=== PATIENT | male | born 1960 | race Caucasian/White ===

== ENCOUNTER 2023-01-20 00:40 | Day surgery (SDC) | payer OTHER, SELFPAY ==
[2023-01-13 14:39] VITALS: BMI 36.3
[2023-01-20 12:10] VITALS: BP 144/86; PULSE 53; RESP 18; TEMP 36.3; O2SAT 97
--- NOTE | 2023-01-20 12:19 | PM.HPGS ---
History of Present Illness History of Present Illness Consent: Risks, benefits, and alternatives have been discussed and questions answered. Patient agrees to proceed with procedure. Chief complaint: rectal bleeding Narrative: Woodrow Salinas is a 62 year old male Presents for colonoscopy. Patient notices for many years he has had bright red blood per rectum with wiping. States he had a hemorrhoid some years ago has an anal skin tag. He denies significant abdominal pain. Patient used to be constipated but this is improved on eating more fiber and drinking more fluids. Despite this he has intermittent bleeding that occurred for week or 2 in the may be stopped for a month. He denies significant abdominal pain. Family history noncontributory. Patient did have a prior colonoscopy in 2015. Review of Systems Review of Systems: Review of systems noncontributory. [facility] Past Medical History Medical History (Updated 12/30/22 @ 15:17 by Cristopher Schmitt DO) Bradycardia CAD in [place] artery Chest pain Edema of both legs Gastro-esophageal reflux disease with esophagitis Other and unspecified hyperlipidemia Pure hypercholesterolemia Screening for endocrine, metabolic and immunity disorder SK (seborrheic keratosis) Spinal stenosis of lumbar region Ventral hernia without obstruction or gangrene Family History Family History Mother Diabetes mellitus Family history of thyroid disease Hypertension Family history of cardiac disorder Social History Social History (Updated 12/30/22 @ 14:47 by Francy Tomlinson [facility]) Smoking status: Never smoker Alcohol intake: current Drinks per week: 4 Alcohol use details: BEERS Substance use: never Substance use type: does not use Lack of Transportation: No Lack of Food: Never True Current Housing: I Have Housing Concerned About Future Housing: No Difficulty Paying Gas/Electric Bills: No Difficulty Paying for Meds: No Currently Unemployed: No Education: Master's Degree or Higher Difficulty w/ Childcare or Family Care: No Living arrangements: alone Spiritual care concerns: No Meds Home Medications and Allergies Home Medications Medication Instructions Recorded Confirmed Type quetiapine 200 mg tablet 200 mg PO DAILY #30 tabs 09/24/22 01/13/23 Rx pravastatin 80 mg tablet See Rx Instructions .Route 10/24/22 01/13/23 Rx .COMPLEX #30 tabs omeprazole 20 mg capsule,delayed 20 mg PO DAILY #90 caps 12/23/22 01/13/23 Rx release sodium,potassium,mag sulfates 17.5 See Rx Instructions PO .COMPLEX 01/07/23 Rx gram-3.13 gram-1.6 gram oral soln #354 mL (Suprep Bowel Prep Kit) Adults Multivitamin 1 tab-cap PO DAILY 01/13/23 01/13/23 History lysine 500 mg tablet 500 mg PO DAILY 01/13/23 01/13/23 History omega-3 fatty acids 2,000 mg PO BID 01/13/23 01/13/23 History Allergies Allergy/AdvReac Type Severity Reaction Status Date / Time No Known Allergies Allergy Unknown Verified 01/20/23 12:10 Vital Signs Vital Signs - 24 hr 01/20/23 12:10 Temperature 97.4 F L Pulse Rate 53 L Respiratory Rate 18 Blood Pressure 144/86 H Pulse Oximetry 97 Oxygen Delivery Room Air Exam Narrative: Physical exam reveals patient to be alert. Vital signs stable. HEENT exam is unremarkable. Patient is anicteric. Lungs are clear to auscultation and percussion. Heart is without murmur or extra sounds. Abdomen bowel sounds are present soft nontender with no organomegaly. Digital external rectal exam normal. Assessment and Plan Assessment and plan (1) Hematochezia: Code(s): K92.1 - Melena Status: Acute Assessment and Plan: Patient with ongoing rectal bleeding he states has been present for many years associated with wiping. Plan to continue stool softener such as Metamucil. If bleeding persist hemorrhoid surgery may be required. Colonoscopy w
[2023-01-20] MEDS: LACTATED RINGERS 1,000 ML 150 ML IV CONT (12:22)
--- NOTE | 2023-01-20 12:30 | WPDANESEPPF ---
Anes - Initial Pre Proc Eval Procedure: Operation Date: 01/20/23 13:30 Proposed Procedures p Colonoscopy - Jesús Bhat MD Date/Time: 01/20/23 12:30 Surgeon: Jesús Bhat MD Pre Op Diagnosis: rectal bleeding Patient Data Age: 62 Gender: M Height: 1.74 m Weight: 107.1 kg Last Vital Signs Temp 97.4 F L 01/20/23 12:10 Pulse 53 L 01/20/23 12:10 Resp 18 01/20/23 12:10 BP 144/86 H 01/20/23 12:10 Pulse Ox 97 01/20/23 12:10 O2 Del Method Room Air 01/20/23 12:10 Allergies Allergy/AdvReac Type Severity Reaction Status Date / Time No Known Allergies Allergy Unknown Verified 01/20/23 12:10 Home Medications Medication Instructions Recorded Confirmed Type quetiapine 200 mg tablet 200 mg PO DAILY #30 tabs 09/24/22 01/13/23 Rx pravastatin 80 mg tablet See Rx Instructions .Route 10/24/22 01/13/23 Rx .COMPLEX #30 tabs omeprazole 20 mg capsule,delayed 20 mg PO DAILY #90 caps 12/23/22 01/13/23 Rx release sodium,potassium,mag sulfates 17.5 See Rx Instructions PO .COMPLEX 01/07/23 Rx gram-3.13 gram-1.6 gram oral soln #354 mL (Suprep Bowel Prep Kit) Adults Multivitamin 1 tab-cap PO DAILY 01/13/23 01/13/23 History lysine 500 mg tablet 500 mg PO DAILY 01/13/23 01/13/23 History omega-3 fatty acids 2,000 mg PO BID 01/13/23 01/13/23 History Patient hx anesthesia problems: none Family hx anesthesia problems: none Results Review: All pre-operative results and documents have been reviewed as part of the pre-operative evaluation. [facility] Past Medical History Medical History (Updated 12/30/22 @ 15:17 by Cristopher Schmitt DO) Bradycardia CAD in [place] artery Chest pain Edema of both legs Gastro-esophageal reflux disease with esophagitis Other and unspecified hyperlipidemia Pure hypercholesterolemia Screening for endocrine, metabolic and immunity disorder SK (seborrheic keratosis) Spinal stenosis of lumbar region Ventral hernia without obstruction or gangrene Family History Family History Mother Diabetes mellitus Family history of thyroid disease Hypertension Family history of cardiac disorder Social History Social History (Updated 12/30/22 @ 14:47 by Francy Tomlinson CMA) Smoking status: Never smoker Alcohol intake: current Drinks per week: 4 Alcohol use details: BEERS Substance use: never Substance use type: does not use Lack of Transportation: No Lack of Food: Never True Current Housing: I Have Housing Concerned About Future Housing: No Difficulty Paying Gas/Electric Bills: No Difficulty Paying for Meds: No Currently Unemployed: No Education: Master's Degree or Higher Difficulty w/ Childcare or Family Care: No Living arrangements: alone Spiritual care concerns: No Anes - Eval Final PreProcedure Day of Procedure 01/20/23 12:30 Patient weight: obese Heart: regular rate and rhythm Lungs: clear to auscultation Airway: Mallampati scale class III Neurological: alert and oriented Last oral intake: >/= 8 hours ASA classification: III Emergent: no Anesthetic plan: proceed Anesthesia type and monitoring: general GIVS and standard monitoring Results Review: All pre-operative results and documents have been reviewed as part of the pre-operative evaluation. Informed Consent: The patient's anesthetic plan and its attendant risks and benefits were discussed with the patient/family/POA. Questions were solicited and answers provided to the satisfaction of the patient/family/POA.
[2023-01-20 14:18] VITALS: BP 150/96; PULSE 88; RESP 14; O2SAT 94
[2023-01-20 14:28] VITALS: BP 146/101; PULSE 84; RESP 14; O2SAT 94
[2023-01-20 14:38] VITALS: BP 146/92; PULSE 73; RESP 17; O2SAT 93
== END 2023-01-20 14:43 | disposition home or self-care (01) ==
PROVIDERS: PCP Internal Medicine; Visit Provider Internal Medicine Gastroenterology
PROC: 0DJD8ZZ Inspection of Lower Intestinal Tract, Via Natural or Artificial Opening Endoscopic (ICD-10-PCS; CPT 45378; principal; 2023-01-20 13:30)
DX: K62.5 Hemorrhage of anus and rectum (principal); K63.5 Polyp of colon; K64.8 Other hemorrhoids; I25.10 Atherosclerotic heart disease of native coronary artery without angina pectoris; K21.9 Gastro-esophageal reflux disease without esophagitis; E78.00 Pure hypercholesterolemia, unspecified; E66.9 Obesity, unspecified; Z68.35 Body mass index [BMI] 35.0-35.9, adult
CPT/HCPCS: 45385; 88305; J2704; J7120

== ENCOUNTER 2025-07-03 14:16 | Emergency (ER) | payer MEDICARE, SELFPAY ==
[2025-07-03 14:27] VITALS: BP 144/89; PULSE 51; RESP 16; TEMP 35.8; O2SAT 97
--- OUTSIDE RECORDS SUMMARY | 2025-07-03 14:29 | XMS_ITS | Clinical Summary ---
Author Organization [facility] Address [address] [place] [address] Care Team Providers Care Court Stenographer Name Role Phone Parth Davis MD Primary Care Provider [phone] Allergies No known active allergies Medications omeprazole (PRILOSEC) 20 MG capsule Take 1 capsule (20 mg total) by mouth daily. 10/20/2024 Active pravastatin (PRAVACHOL) 80 MG tablet Take 1 tablet (80 mg total) by mouth daily. 10/20/2024 Active QUEtiapine (SEROQUEL) 200 MG tablet Take 0.5 tablets (100 mg total) by mouth nightly at bedtime. 11/03/2024 Active icosapent ethyl (VASCEPA) 1 G capsule Take 1 capsule (1 g total) by mouth daily. 11/03/2024 Active Active Problems Problem Noted Date Diagnosed Date Chronic GERD 01/19/2025 Social History Tobacco Use Types Packs/Day Years Used Date Smoking Tobacco: Never Assessed Tobacco Cessation:Counseling Given: Yes PHQ-2 Answer Date Recorded Patient Health Questionnaire-2 Score 0 01/19/2025 Sex and Gender Information Value Date Recorded Sex Assigned at Not on file Legal Sex Male 3:10 PM CDT Gender Identity Not on file Sexual Orientation Not on file Last Filed Vital Signs Vital Sign Reading Time Taken Comments Blood Pressure 121/74 01/19/2025 11:02 AM CDT Pulse 70 01/19/2025 11:02 AM CDT Temperature 36.1 C (97 F) 01/19/2025 11:02 AM CDT Respiratory Rate 19 01/19/2025 11:02 AM CDT Oxygen Saturation 100% 01/19/2025 11:02 AM CDT Inhaled Oxygen Concentration - - Weight 105.2 kg (232 lb) 01/19/2025 11:02 AM CDT Height 172.7 cm (5' 8) 01/19/2025 11:02 AM CDT Body Mass Index 35.28 01/19/2025 11:02 AM CDT Plan of Treatment Upcoming Encounters Date Type Department Care Team (Latest Contact Info) Description 08/10/2025 12:30 PM OUTSIDE DEALER SALES REPRESENTATIVE Hospital Encounter [facility] [place] [address] Lyle Campos MD [address] [address] 08/10/2025 12:30 PM OUTSIDE DEALER SALES REPRESENTATIVE - 08/10/2025 1:00 PM OUTSIDE DEALER SALES REPRESENTATIVE Surgery [facility] [place]o[facility] [address] Lyle Campos MD [address] [address] EGD DX WITH BRUSH/WASH Scheduled Procedures Name Priority Associated Diagnoses Date/Ti me EGD DX WITH BRUSH/WASH Chronic GERD 08/10/2025 12:30 PM OUTSIDE DEALER SALES REPRESENTATIVE Health Maintenance Due Date Last Done Comments Colorectal Cancer Screening Colonoscopy (10 Years) 1960 Hepatitis C 1978 Pneumococcal Vaccine: 50+ Years (1 of 1 - PCV) 2010 COVID-19 Vaccine ( - 2024- season) 2025 06/18/2021, 09/23/2020, 09/02/2020 Influenza Adult (#1) 2025 06/27/2022, 06/18/2021, 04/19/2020, Additional history exists DTaP, Tdap and Td Vaccines (2 - Td or Tdap) 01/09/2035 01/09/2025 RSV Immunization or 60+ Years (1 - 1-dose 75+ series) 2035 Zoster Vaccines Completed 07/04/2020, 04/19/2020 PHQ-2 (Physician [place]) Completed 01/19/2025 Hepatitis A Vaccines Aged Out No long er eligible based on patient's age to complete this topic Meningococcal B Vaccine Aged Out No l onger eligible based on patient's age to complete this topic Meningococcal Vaccine Aged Out No megan thais eligible based on patient's age to complete this topic RSV Immunizations Under 20 Months Aged Out No longer eligible based on patient's age to complete this topic Goals Goal Patient Goal Type Associated Problems Recent Progress Patient-Stated? Author Autogenera ana Goal Care Plan Autogenerated Problem No Carmen Juarez S, FOOD SERVICE TRAY ATTENDANT Additional Health Concerns Active Problems Noted Date Diagnosed Date Autogenerated Problem 01/19/2025 Insurance [facility] Care Teams Court Stenographer Relationship Specialty Start Date End Date Parth Davis MD [address] [place] [address] PCP - General FAMILY PRACTICE 11/08/24
--- OUTSIDE RECORDS SUMMARY | 2025-07-03 14:29 | XMS_ITS | Encounter Summary ---
Author Organization [facility] Address [address] [place] [address] Care Team Providers Care Speedboat Driver Name Role Phone Aron Mullen MD Primary Care Provider [phone] Encounter Details Date Type Department Care Team (Late st Contact Info) Description 04/03/2005 Outpatient [facility] [address] [place] [facility] [address] Tino Cruz MD [address] [place] [address] Social History Tobacco Use Types Packs/Day Years Used Date Smoking Tobacco: Never Assessed Sex and Gender Information Value Date Recorded Sex Assigned at Not on file Legal Sex Male 5:00 AM CUSTOMER AGENT Gender Identity Not on file Sexual Orientation Not on file documented as of this encounter Plan of Treatment Not on file documented as of this encounter Visit Diagnoses Not on filedocumented in this encounter Care Teams Speedboat Driver Relationship Specialty Start Date End Date Aron Mullen MD PCP - General 01/07/05 documented as of this encounter
--- OUTSIDE RECORDS SUMMARY | 2025-07-03 14:29 | XMS_ITS | Continuity of Care Document ---
Author Name Moncho Moe ae Address [address] [place] [address] Organization Unknown Address [address] [place] [address] Medications No known medications Problems No known problems
--- OUTSIDE RECORDS SUMMARY | 2025-07-03 14:29 | XMS_ITS | Encounter Summary ---
Author Organization [facility] Address [address] [place] [address] Care Team Providers Care Batch Roller Operator Name Role Phone Aron Mullen MD Primary Care Provider [phone] Encounter Details Date Type Department Care Team (Latest Contact Info) Description 01/07/2005 Outpatient Historical [facility] [place] [address] [place] [phone] CHEST PAIN NOS (Primary Dx) Social History Tobacco Use Types Packs/Day Years Used Date Smoking Tobacco: Never Assessed Sex and Gender Information Value Date Recorded Sex Assigned at Not on file Legal Sex Male 5:00 AM INTERVENTIONAL NURSE Gender Identity Not on file Sexual Orientation Not on file documented as of this encounter Plan of Treatment Not on file documented as of this encounter Visit Diagnoses Diagnosis Chest pain, unspecified- Primary documented in this encounter Care Teams Batch Roller Operator Relationship Specialty Start Date End Date Aron Mullen MD PCP - General 01/07/05 documented as of this encounter
--- OUTSIDE RECORDS SUMMARY | 2025-07-03 14:29 | XMS_ITS | Encounter Summary ---
Author Organization [facility] Address [address] [place] [address] Care Team Providers Care Gang Knife Fish Chopper Name Role Phone Aron Mullen MD Primary Care Provider [phone] Encounter Details Date Type Department Care Team (Late st Contact Info) Description 01/13/2005 Outpatient [facility] [address] [place] 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
--- OUTSIDE RECORDS SUMMARY | 2025-07-03 14:29 | XMS_ITS | Clinical Summary ---
Author Organization [facility] Address [address] 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 TEACHER Gender Identity Not on file Sexual Orientation Not on file Plan of Treatment Health Maintenance Due Date Last Done Comments DTAP/TDAP/TD VACCINES (1 - Tdap) 1979 COLORECTAL SCREENING 2005 Colorectal Cancer Screening 2005 FIT-DNA Q 3 years 2005 FIT/FOBT Q 1 year 2005 Flex Sig/CT Colonography Q 5 years 2005 PNEUMOCOCCAL VACCINE 50+ YEARS (1 of 1 - PCV) 06/01/20 10 ZOSTER VACCINE (1 of 2) 2010 INFLUENZA VACCINE (#1) 2025 RSV VACCINE (60+ or ) (1 - 1-dose 75+ series) 2035 Care Teams Novelty Printing Machine Operator Relationship Specialty Start Date End Date Aron Mullen MD PCP - General 01/07/05
--- OUTSIDE RECORDS SUMMARY | 2025-07-03 14:29 | XMS_ITS | Encounter Summary ---
Author Organization [facility] Address [address] [place] [address] Care Team Providers Care Jute Bag Cutting Machine Operator Name Role Phone Aron Mullen MD Primary Care Provider [phone] Encounter Details Date Type Department Care Team (Late st Contact Info) Description 02/23/2005 Outpatient [facility] [address] [facility] [place] [address] Tino Cruz MD [address] [place] [address] Social History Tobacco Use Types Packs/Day Years Used Date Smoking Tobacco: Never Assessed Sex and Gender Information Value Date Recorded Sex Assigned at Not on file Legal Sex Male 5:00 AM R D INTERNSHIP Gender Identity Not on file Sexual Orientation Not on file documented as of this encounter Plan of Treatment Not on file documented as of this encounter Visit Diagnoses Not on filedocumented in this encounter Care Teams Jute Bag Cutting Machine Operator Relationship Specialty Start Date End Date Aron Mullen MD PCP - General 01/07/05 documented as of this encounter
--- OUTSIDE RECORDS SUMMARY | 2025-07-03 14:29 | XMS_ITS | Continuity of Care Document ---
Author Name Moncho Moe Address [address] [place] [address] Organization Unknown Address [address] [place] [address] Medications No known medications Problems No known problems
--- OUTSIDE RECORDS SUMMARY | 2025-07-03 14:29 | XMS_ITS | Encounter Summary ---
Author Organization [facility] Address [address] [place] [address] Care Team Providers Care Shactor Name Role Phone Aron Mullen MD Primary Care Provider [phone] Encounter Details Date Type Department Care Team (Late st Contact Info) Description 04/14/2005 Outpatient Historical [facility] Internal Medicine [facility] and [address] [place] [phone] [place] [address] [facility] [address] [place] [address] Social History Tobacco Use Types Packs/Day Years Used Date Smoking Tobacco: Never Assessed Sex and Gender Information Value Date Recorded Sex Assigned at Not on file Legal Sex Male 5:00 AM TRUCK CHAUFFEUR Gender Identity Not on file Sexual Orientation Not on file documented as of this encounter Plan of Treatment Not on file documented as of this encounter Visit Diagnoses Not on filedocumented in this encounter Care Teams Shactor Relationship Specialty Start Date End Date Aron Mullen MD PCP - General 01/07/05 documented as of this encounter
--- OUTSIDE RECORDS SUMMARY | 2025-07-03 14:29 | XMS_ITS | Encounter Summary ---
Author Organization [facility] Address [address] [place] [address] Care Team Providers Care Mdm Sr Name Role Phone Aron Mullen MD Primary Care Provider [phone] Encounter Details Date Type Department Care Team (Late st Contact Info) Description 12/30/2004 Outpatient Historical [facility] Internal Medicine [facility] and [address] [place] [address] [place] [address] [facility] [address] [place] [address] Social History Tobacco Use Types Packs/Day Years Used Date Smoking Tobacco: Never Assessed Sex and Gender Information Value Date Recorded Sex Assigned at Not on file Legal Sex Male 5:00 AM UPHOLSTERY HANDLER Gender Identity Not on file Sexual Orientation Not on file documented as of this encounter Plan of Treatment Not on file documented as of this encounter Visit Diagnoses Not on filedocumented in this encounter Care Teams Mdm Sr Relationship Specialty Start Date End Date Aron Mullen MD PCP - General 01/07/05 documented as of this encounter
--- OUTSIDE RECORDS SUMMARY | 2025-07-03 14:29 | XMS_ITS | Encounter Summary ---
Author Organization [employer] Address [address] [place] [address] Care Team Providers Care Mass Communications Instructor Name Role Phone Aron Mullen MD Primary Care Provider [phone] Encounter Details Date Type Department Care Team (Late st Contact Info) Description 01/07/[address] [facility] [address] [place] [address] [place] [address] [facility] [address] [place] [address] Social History Tobacco Use Types Packs/Day Years Used Date Smoking Tobacco: Never Assessed Sex and Gender Information Value Date Recorded Sex Assigned at Not on file Legal Sex Male 5:00 AM BEAUTICIAN APPRENTICE Gender Identity Not on file Sexual Orientation Not on file documented as of this encounter Plan of Treatment Not on file documented as of this encounter Visit Diagnoses Not on filedocumented in this encounter Care Teams Mass Communications Instructor Relationship Specialty Start Date End Date Aron Mullen MD PCP - General 01/07/05 documented as of this encounter
--- NOTE | 2025-07-03 14:42 | ED_ITS ---
HPI - Eye Problem General Chief complaint: Eye Problems Stated complaint: Bilateral Eye Problems Time Seen by Provider: 07/03/25 14:29 Source: patient and RN notes reviewed Mode of arrival: ambulatory Limitations: no limitations History of Present Illness HPI Narrative: 65-year-old male patient presents today complaining of swelling and crusting to the bilateral upper and lower eyelids as well as redness to the eyes. Initially the right eye started 5 days ago after trimming a tree outside and saw dust dropping on his face without eye protection. This same thing occurred 2 other times without eye protection with the next couple of days, in the left eye started developing symptoms 2 days ago as well. Patient denies pain 10 denies vision changes itching, or any cold symptoms. He does not wear contacts or glasses. He has flush the eyes, but tried no other [id number] interventions prior to arrival. Related Data Home Medications ?Medication ?Instructions ?Recorded ?Confirmed ?Last Taken ?Type Adults Multivitamin 1 tab-cap PO DAILY 01/13/23 06/08/25 Unknown History Allergies Allergy/AdvReac Type Severity Reaction Status Date / Time No Known Allergies Allergy Unknown Verified 07/03/25 14:18 [facility] Past Medical History Medical History Screening for endocrine, metabolic and immunity disorder Bradycardia CAD in [place] artery Chest pain Gastro-esophageal reflux disease with esophagitis Edema of both legs Other and unspecified hyperlipidemia Pure hypercholesterolemia SK (seborrheic keratosis) Spinal stenosis of lumbar region Ventral hernia without obstruction or gangrene Family History Family History Mother Diabetes mellitus Family history of thyroid disease Hypertension Family history of cardiac disorder Social History Social History Smoking status: Never smoker Alcohol intake: current Drinks per week: 4 Alcohol use details: BEERS Substance use: never Substance use type: does not use Lack of Transportation: No Lack of Food: Never True Current Housing: I Have Housing Concerned About Future Housing: No Difficulty Paying Gas/Electric Bills: No Difficulty Paying for Meds: No Currently Unemployed: No Education: Master's Degree or Higher Difficulty w/ Childcare or Family Care: No Living arrangements: alone Spiritual care concerns: No Comments At time of signature, I have reviewed and agree with nursing past medical, surgical, social and family history unless otherwise noted. Please see nursing chart for further information. There is no relevant family history pertinent to the presenting complaint Exam Narrative: GENERAL: Well-appearing, well-nourished, and in no acute distress. HEAD: Normocephalic, atraumatic. EYES: EOMI. Bilateral mildly injected conjunctiva with moderate chemosis. B ilateral mildly edematous upper eyelids and moderately edematous lower eyelids. No active drainage. No fluorescein uptake bilaterally. See procedure note ENT: Mucous membranes pink and moist. NECK: Normal AROM. CHEST: No respiratory distress. EXTREMITIES: Normal range of motion. No edema. SKIN: Warm, dry, no rash. Capillary refill normal. Normal skin turgor. NEURO: No focal deficits. Alert and oriented x3. Gait steady. PSYCH: Normal affect. No signs of depression or anxiety. Course Course Level of Care: Express Care Visit Vital Signs Vital signs: Vital Signs Temperature 96.5 F L 07/03/25 14:27 Pulse Rate 51 L 07/03/25 14:27 Respiratory Rate 16 07/03/25 14:27 Blood Pressure 144/89 H 07/03/25 14:27 Pulse Oximetry 97 07/03/25 14:27 Oxygen Delivery Room Air 07/03/25 14:27 Temperature 96.5 F L 07/03/25 14:27 Pulse Rate 51 L 07/03/25 14:27 Respiratory Rate 16 07/03/25 14:27 Blood Pressure 144/89 H 07/03/25 14:27 Pulse Oximetry 97 07/03/25 14:27 Oxygen Delivery Room Air 07/03/25 14:27 Reviewed Procedures Other Procedure Procedure 1: Other Procedure: Bilateral corneas were dyed with fluorescein and examined under Wood's lamp, and 0 abrasions or ulcerations were noted. Pt tolerated procedure well. MDM MDM Narrative Medical decision making narrative: 65-year-old male patient presents today complaining of swelling and crusting to the bilateral upper and lower eyelids as well as redness to the eyes. Initially the right eye started 5 days ago after trimming a tree outside and saw dust drop ping on his face without eye protection. This same thing occurred 2 other times without eye protection with the next couple of days, in the left eye started developing symptoms 2 days ago as well. Patient denies pain. denies vision changes itching, or any cold symptoms. He does not wear contacts or glasses. He has flush the eyes, but tried no other [id number] interventions prior to arrival. Upon exam, EOMI. Bilateral mildly injected conjunctiva with moderate chemosis. Bilateral mildly edematous upper eyelids and moderately edematous lower eyelids. No active drainage. No fluorescein uptake bilaterally. Patient will be treated with course of prednisone to help with the eyelid swelling. Recommend starting an antihistamine eyedrops such as Zaditor for the allergic conjunctivitis, likely due to the tree he has been trimming. Patient agrees with plan. Vital signs stable. Anticipatory guidance given. Differential Diagnosis Differential Diagnosis: Contact dermatitis, conjunctivitis, corneal abrasion, blepharitis Critical Care Time Critical Care Time Critical Care Time: No Discharge Plan Discharge Clinical Impression: Acute allergic conjunctivitis of both eyes Patient Disposition: Home Condition: Stable Additional Instructions: Your symptoms are likely due to coming into contact with something you are allergic to, which has inflamed your eyes. Please start the prednisone and take as directed. You may also consider using an antihistamine eyedrops such as Zaditor. Follow-up with your PCP or eye doctor in 3 days if symptoms are not improving. Patient Language: [place] Prescriptions: New prednisone 20 mg tablet 40 mg PO DAILY 5 Days Qty: 10 0RF No Action quetiapine 200 mg tablet 200 mg PO DAILY Qty: 30 0RF icosapent ethyl [Vascepa] 1 gram capsule 1 g PO BID Qty: 180 3RF omeprazole 20 mg capsule,delayed release(DR/EC) 20 mg PO DAILY Qty: 100 3RF pravastatin 80 mg tablet See Rx Instructions .ROUTE .COMPLEX Qty: 100 3RF Dose Instruction: TAKE 1 TABLET BY MOUTH DAILY Rx Instructions: TAKE 1 TABLET BY MOUTH DAILY Adults Multivitamin 1 tab-cap PO DAILY Follow-up/Referrals: Cristopher Schmitt DO [Primary Care Provider, Internal Medicine] Time of Disposition: 14:53
== END 2025-07-03 14:54 | disposition home or self-care (01) ==
PROVIDERS: Emergency Provider Nurse Practitioner; PCP Internal Medicine
DX: H10.13 Acute atopic conjunctivitis, bilateral (principal); I25.10 Atherosclerotic heart disease of native coronary artery without angina pectoris
CPT/HCPCS: 99213; G0463